=== PATIENT | female | born 1940 | race Caucasian/White ===

== ENCOUNTER 2017-12-13 15:54 | Inpatient (IN) ==
[2017-12-13] MEDS ORDERED: Ketorolac 30 MG/ML VIAL IVP PRN (17:46)
[2017-12-13] MEDS ORDERED: Ondansetron 4 MG/2 ML VIAL IVP PRN (17:46)
[2017-12-13] MEDS ORDERED: Naloxone 0.4 MG/ML INJ IVP PRN (17:46)
[2017-12-13] MEDS ORDERED: OXYCODONE Oral CONC 10 MG/0.5 ML ORAL.SYG SL PRN (17:46)
--- NOTE | 2017-12-13 17:56 | Internal Med History&Physical ---
Date of Encounter: 12/13/17 Time of Encounter: 17:54 Internal Medicine - H&P: HPI Chief complaint: Left knee pain Admitted From: Emergency Dept History of present illness: Ms. Espinal is a 77 year old female with a past medical history of hypertension and CAD status post CABG who went to [facility] emergency room complaining of severe left knee pain after sustaining a fall. The limb was performed. The patient says that she did not feel dizzy before it happened and she just tripped. He x-ray showed an acute comminuted displaced and angulated distal fracture of the left femur. Dr. Urias was called and accepted the transfer. Patient was given fentanyl, blood pressure was recorded as 181/91 with lower values after that. The patient says that the pain is 9 out of 10 in intensity. Denies any other complaints No allergies, takes only aspirin Past Med Surg Social Fam HX - Past Medical History Medical history: coronary artery disease, hypertension Psychiatric history: no psych history - Past Surgical History Surgical History: coronary bypass (CABG), other (Tonsillectomy and right rotator cuff repair) - Social History Smoking Status: Never smoker Smokeless Tobacco Status: No Alcohol use: none Drug use: none - Additional Family History Additional family history: Father with CHF and mother with kidney disease All Systems PM: A 10-system review of systems was performed and is negative for pertinent findings except as documented above in the HPI. Review of systems: No chest pressures or breath other systems out of the 10 reviewed were negative. - Constitutional General appearance: Present: A&O X 3 - Head Head exam: Present: atraumatic, normocephalic - Eye Eye exam: Present: PERRL, conjuntiva pink, sclera anicteric Pupils: Present: PERRL - Neck Neck exam general surgery: Present: supple, trachea midline. Absent: lymphadenopathy - Respiratory Respiratory exam: Present: CTAB. Absent: accessory muscle use, rales, rhonchi, wheezes - Cardiovascular Cardiovascular exam: Present: RRR, +S1, +S2. Absent: diastolic murmur, gallop, rubs, systolic murmur - GI/Abdominal GI/Abdominal exam: Present: normal bowel sounds, soft, no peritoneal signs. Absent: distended, tenderness - Extremities Exam Extremities exam: Present: warm, radial pulses palpable and symmetrical. Absent : calf tenderness, cyanotic, pedal edema Additional comments: Left knee is very swollen, deformed, no ecchymosis - Neurological Exam Neurological exam: Present: CN II-XII intact, oriented X3, no focal deficits. Absent: pronater drift, facial droop, speech deficit - Skin Skin exam: Present: dry, intact Internal Med - H&P Results - Labs Labs: Blood pressure now is 151/82 heart rate 72 temperature 97.4 respiratory rate 16 saturating 98% on room air - Assessment and plan (1) Closed fracture of left distal femur Current Visit: Yes Status: Acute Assessment and plan: Fall precautions Orthopedic surgery consult Order CBC, INR, BMP and EKG Pain control Prior records reviewed IV fluids, nothing by mouth after midnight for possible surgical procedure Omeprazole for GI prophylaxis and subcutaneous tenderness heparin for DVT prophylaxis. The patient will be admitted as inpatient, expected stay more than 2 midnights. Full code. Time spent on this admission 40 minutes Qualifiers: Encounter type: initial encounter Fracture morphology: unspecified fracture morphology Qualified Code(s): S72.402A - Unspecified fracture of lower end of left femur, initial encounter for closed fracture (2) Accelerated hypertension Current Visit: Yes Status: Acute Assessment and plan: Likely exacerbated by pain Can use IV hydralazine if needed Consider starting amlodipine if not improving (3) Intractable pain Current Visit: Yes Status: Acute - Time Spent With Patient Total time spent is greater than 50% in coordination of care (as documented) at patient's floor/unit and/or counseling patient:
[2017-12-13] MEDS ORDERED: 0.9 % Sodium Chloride 1,000 ML IVC SCH (18:00)
[2017-12-13 18:27] LABS: Hematocrit 37.2 % (35.3-44.9); Hemoglobin 13.5 g/dL (11.5-15.4); Immature Platelets 2.4 % (1.1-6.1); Mean Corpuscular HGB Conc 36.3 g/dL (31.6-35.5); Mean Corpuscular Hemoglobin 32.5 pg (28.0-33.3); Mean Corpuscular Volume 89.4 fL (83.0-100.0); Red Blood Count 4.16 M/mcL (3.82-4.97); Red Cell Distribution Width 12.5 % (11.5-14.5)
[2017-12-13 18:51] LABS: BUN/Creatinine Ratio 31 (6-26); Blood Urea Nitrogen 21 mg/dL (8-23); Calcium 9.1 mg/dL (8.6-10.3); Carbon Dioxide 26 mEq/L (23-29); Chloride 109 mEq/L (98-107); Glucose 142 mg/dL (70-105); Osmolality,Calculated 297 (280-300); Potassium 3.6 mEq/L (3.5-5.1); Sodium 141 mEq/L (136-145); eGFR For African Americans > 60 (> 60); eGFR For Non-African Americans > 60 (> 60)
[2017-12-13 18:55] LABS: Prothrombin Time 10.8 Seconds (9.4-12.1)
[2017-12-13] MEDS: OXYCODONE Oral CONC 10 MG/0.5 ML ORAL.SYG SL PRN (19:14)
--- NOTE | 2017-12-13 19:32 | Orthopedic Consult Note ---
Date of Encounter: 12/13/17 Time of Encounter: 19:30 History of Present Illness HPI: Ms. Espinal is a 77 year old female Status post fall tripping over a cord injuring her left knee. Patient seen at another facility transferred over with a displaced comminuted left distal femur fracture. Physical exam Patient alert and oriented 3 Left lower extremity draped over a blanket Tenderness distal femur No tense swelling Neurovascular intact distally X-rays reviewed show displaced fracture left distal femur. Recommendation based on patient's age and bone quality and fracture pattern left distal femoral replacement. We reviewed the risks and benefits as well as recovery. All questions were answered. The patient agreed to this treatment plan and appeared to understand the plan is reviewed. Past Med Surg Social Fam HX - Past Medical History Medical history: coronary artery disease, hypertension Psychiatric history: no psych history - Past Surgical History Surgical History: coronary bypass (CABG), other (Tonsillectomy and right rotator cuff repair) - Social History Smoking Status: Never smoker Smokeless Tobacco Status: No Alcohol use: none Drug use: none Medications and Allergies 3 Allergy/AdvReac Type Severity Reaction Status Date / Time No Known Allergies Allergy Verified 12/13/17 18:16 All Systems Reviewed: The remainder of the systems were reviewed and are negative Results - Labs Result Diagrams: 12/13/17 18:05 12/13/17 18:05 Labs: Abnormal lab results MCHC 36.3 g/dL (31.6-35.5) H 12/13/17 18:05 Chloride 109 mEq/L (98-107) H 12/13/17 18:05 BUN/Creatinine Ratio 31 (6-26) H 12/13/17 18:05 Glucose 142 mg/dL (70-105) H 12/13/17 18:05 H & H 12/13/17 Range/Units 18:05 Hgb 13.5 (11.5-15.4) g/dL Hct 37.2 (35.3-44.9) % All other labs normal. Consult Discharge Plan - Plan Referrals: Varun Benjamin MD [Primary Care Provider] -
--- NOTE | 2017-12-13 23:16 | Anesthesia Evaluation PreOp ---
<Basia Palma M - Last Filed: 12/13/17 23:42> Date of Encounter: 12/13/17 Time of Encounter: 23:13 - Past History Planned Operation: L-distal femur replacement Cardiac History: HTN, Cardiac Surgery, Other (CAD) Anesthesia History: Past Anesthesia (CABG, T&A, R-RCR) Alcohol Use: none Drug use: none Medications and Allergies Amlodipine Besylate/Benazepril [Lotrel 10-20 mg Capsule] 1 cap PO DAILY [History] Metoprolol [Lopressor] 12.5 mg PO BID 12/14/17 [History] Simvastatin [Zocor] 40 mg PO HS 12/14/17 [History] hydroCHLOROthiazide [Hydrochlorothiazide] 25 mg PO DAILY 12/14/17 [History] 3 Allergy/AdvReac Type Severity Reaction Status Date / Time No Known Allergies Allergy Verified 12/13/17 18:16 - Meds/Allergy Pre-op Review Medications Reviewed: Yes Allergies Reviewed: Yes Beta Blockers on Current Med List: No Anesthesia Results - Labs 12/13/17 18:05 12/13/17 18:05 Laboratory Results WBC 10.9 K/mcL (4.3-11.1) 12/13/17 18:05 RBC 4.16 M/mcL (3.82-4.97) 12/13/17 18:05 Hgb 13.5 g/dL (11.5-15.4) 12/13/17 18:05 Hct 37.2 % (35.3-44.9) 12/13/17 18:05 MCV 89.4 fL (83.0-100.0) 12/13/17 18:05 MCH 32.5 pg (28.0-33.3) 12/13/17 18:05 MCHC 36.3 g/dL (31.6-35.5) H 12/13/17 18:05 RDW 12.5 % (11.5-14.5) 12/13/17 18:05 Plt Count 156 K/mcL (140-400) 12/13/17 18:05 MPV 10.0 fL (9.4-12.4) 12/13/17 18:05 Immature Plt Fraction 2.4 % (1.1-6.1) 12/13/17 18:05 PT 10.8 Seconds (9.4-12.1) 12/13/17 18:05 INR 1.0 12/13/17 18:05 Sodium 141 mEq/L (136-145) 12/13/17 18:05 Potassium 3.6 mEq/L (3.5-5.1) 12/13/17 18:05 Chloride 109 mEq/L (98-107) H 12/13/17 18:05 Carbon Dioxide 26 mEq/L (23-29) 12/13/17 18:05 BUN 21 mg/dL (8-23) 12/13/17 18:05 Creatinine 0.68 mg/dL (0.60-1.20) 12/13/17 18:05 Est GFR ( Amer) > 60 (> 60) 12/13/17 18:05 Est GFR (Non-Af Amer) > 60 (> 60) 12/13/17 18:05 BUN/Creatinine Ratio 31 (6-26) H 12/13/17 18:05 Glucose 142 mg/dL (70-105) H 12/13/17 18:05 Calculated Osmolality 297 (280-300) 12/13/17 18:05 Calcium 9.1 mg/dL (8.6-10.3) 12/13/17 18:05 - Imaging EKG: pending Anesthesia Exam Vital Signs Temp Pulse Resp BP Pulse Ox 12/13/17 22:58 98.3 F 63 16 132/67 97 12/13/17 19:43 98.2 F 68 16 127/71 94 Intake and Output 12/13/17 12/13/17 12/13/17 07:59 15:59 23:59 Other: Weight 86.8 kg Patient Weight 12/13/17 23:59 Weight 86.8 kg Height: 5'2" Weight: 191# BMI = 35 - HEENT Pupil (Motor): Pupils equal Anesthesia Assess/Plan ASA Score: 3 Modified Brooks Scale for Level of Consciousness: Cooperative, oriented, and tranquil Anesthetic Plan: General, Regional Monitoring Plan: Standard Monitors Recovery Plan: PACU <Damien Reeves - Last Filed: 12/14/17 11:54> Date of Encounter: 12/14/17 Time of Encounter: 11:52 - Past History Cardiac History: Cardiac Surgery (2013 CABG x 3) Pulmonary History: Denies Any Significant HX TILE SETTER History: Denies Any Significant HX Other Medical History: Denies Any Significant HX : No Anesthesia Results - Labs 12/14/17 01:51 12/13/17 18:05 Anesthesia Exam - HEENT Mallampati: II Teeth: Normal - TILE SETTER TILE SETTER Motor: Normal RUE, Normal LUE, Normal RLE, Normal LLE, Normal Face TILE SETTER Sensory: Normal: RUE, LUE, RLE, LLE, Face - Cardiac Murmur: None - Pulmonary Breath Sounds: bilateral Clear Anesthesia Assess/Plan ASA Score: 3
[2017-12-14] MEDS: OXYCODONE Oral CONC 10 MG/0.5 ML ORAL.SYG SL PRN ×2 (00:57→06:53)
[2017-12-14] MEDS: *HR* Heparin 5,000 UNIT/ML VIAL SQ SCH ×2 (01:06→07:33)
[2017-12-14 02:16] LABS: Hematocrit 31.5 % (35.3-44.9); Mean Corpuscular HGB Conc 35.9 g/dL (31.6-35.5); Mean Corpuscular Hemoglobin 31.8 pg (28.0-33.3); Mean Corpuscular Volume 88.7 fL (83.0-100.0); Platelet Count 133 K/mcL (140-400); Red Blood Count 3.55 M/mcL (3.82-4.97); Red Cell Distribution Width 12.4 % (11.5-14.5)
[2017-12-14 02:17] LABS: Hemoglobin 11.3 g/dL (11.5-15.4)
[2017-12-14 02:34] LABS: Chol/HDL Ratio 2.8 (0-4.9)
--- NOTE | 2017-12-14 06:48 | Orthopedics Progress Note ---
Date of Encounter: 12/14/17 Time of Encounter: 06:48 Subjective Interval history: Patient seen this morning resting comfortably no signs of compartment syndrome surgery plan for early afternoon We reviewed the risks and benefits as well as recovery. All questions were answered. The patient agreed to this treatment plan and appeared to understand the plan is reviewed. Objective Vital signs: Vital Signs Temp Pulse Resp BP Pulse Ox 12/14/17 03:46 97.9 F 66 16 129/69 97 12/13/17 22:58 98.3 F 63 16 132/67 97 12/13/17 19:43 98.2 F 68 16 127/71 94 Intake and Output 12/13/17 12/13/17 12/14/17 15:59 23:59 07:59 Output Total 550 / 550 Balance -550 / -550 Output: Catheter 550 / 550 Urethral ([place]) 550 / 550 Other: Weight 86.8 kg 87.6 kg Patient Weight 12/14/17 23:59 Weight 87.6 kg - Labs CBC & BMP: 12/14/17 01:51 12/13/17 18:05 Labs: Abnormal lab results RBC 3.55 M/mcL (3.82-4.97) L 12/14/17 01:51 Hgb 11.3 g/dL (11.5-15.4) L D 12/14/17 01:51 Hct 31.5 % (35.3-44.9) L 12/14/17 01:51 MCHC 35.9 g/dL (31.6-35.5) H 12/14/17 01:51 Plt Count 133 K/mcL (140-400) L 12/14/17 01:51 Chloride 109 mEq/L (98-107) H 12/13/17 18:05 BUN/Creatinine Ratio 31 (6-26) H 12/13/17 18:05 Glucose 142 mg/dL (70-105) H 12/13/17 18:05 Triglycerides 162 mg/dL (< 150) H 12/14/17 01:51 VLDL Cholesterol, Calc 32 mg/dL (< 31) H 12/14/17 01:51 Consult Discharge Plan - Plan Referrals: Varun Benjamin MD [Primary Care Provider] -
[2017-12-14] MEDS ORDERED: *HR* Meperidine 25 MG/ML SYRINGE IVP PRN (11:56)
[2017-12-14] MEDS ORDERED: *HR* OxyCODONE Immed Rel 5 MG TABLET PO PRN ×2 (11:56→15:25)
[2017-12-14] MEDS ORDERED: Ondansetron 4 MG/2 ML VIAL IVP ONE ×2 (11:56→15:25)
[2017-12-14] MEDS ORDERED: MORPHINE SUL Oral CONC 10 MG/0.5 ML ORAL.SYG SL PRN (11:56)
[2017-12-14] MEDS ORDERED: *HR* Promethazine 25 MG/ML VIAL IVP PRN ×2 (11:56→15:25)
[2017-12-14] MEDS ORDERED: *HR* Propofol 200 MG/20 ML VIAL IVP ONE (11:58)
[2017-12-14] MEDS ORDERED: *HR* FentaNYL (PF) 100 MCG/2 ML VIAL ONE (11:58)
[2017-12-14] MEDS ORDERED: Lidocaine -MPF 2% 2 ML VIAL ONE (11:58)
[2017-12-14] MEDS ORDERED: *HR* Succinylcholine 200 MG/10 ML VIAL IVP ONE (11:59)
[2017-12-14] MEDS ORDERED: Ringers Solution, Lactated 1,000 ML IVC SCH ×3 (12:00→15:25)
[2017-12-14] MEDS ORDERED: ceFAZolin 2,000 MG in 0.9 % Sodium Chloride 100 ML IVPB ONE (12:03)
[2017-12-14] MEDS ORDERED: Dexamethasone 4 MG/ML VIAL ONE ×2 (12:09→12:45)
[2017-12-14] MEDS ORDERED: ROPIVACAINE HCL/PF 0.5% 30 ML VIAL ONE (12:09)
[2017-12-14] MEDS ORDERED: Ethanol\\Acetic Acid\\Na Ace\\Ben 1,000 ML IRRIG.SOLN IR ONE (12:13)
--- NOTE | 2017-12-14 12:34 | Anesthesia Procedures ---
Date of Encounter: 12/14/17 Time of Encounter: 12:34 Procedures: Anesthesia - Nerve Block Procedure Date: 12/14/17 Time: 12:32 Pre-op Diagnosis: femur fracture Checklist: Correct Patient Identifier, Correct procedure, History checked Correct side: Left Blood Thinner: No Monitor Applied: EKG, BP, Pulse Oximetry Supplemental Oxygen via Nasal Cannula (L/min): 2 Sedation: Fentanyl (mcg): 100 Indication: Post Op Analgesia Pre-op Neuro Deficits: No Block Type: Femoral Catheter placed: No Sterile Technique: Yes Ultrasound used: Yes Anatomy identified: Yes Visual spread of Local: Yes Nerve Stimulator Range: 0.2 - 0.4 mA Blood on Needle Aspiration: No Smooth Injection of Local: Yes Pain with Injection of Local: No Prep: Chlorhexadine Needle: 21 x 100 mm Stimuplex Local: Ropivacaine (30 cc with 8 mg decadron) Volume (cc): 30 Number of Attempts: 1 Complications: None/effective block Vitals: Vital Signs/O2 Sat, Most Current Temp Pulse Resp BP Pulse Ox 98.1 F 72 18 157/72 99 12/14/17 06:53 12/14/17 12:30 12/14/17 12:30 12/14/17 12:30 12/14/17 12:30 Anes Supervising Prov Stmt: I was present and supervising this procedure with Krish Car CRNA
[2017-12-14] MEDS ORDERED: Ondansetron 4 MG/2 ML VIAL ONE (12:45)
[2017-12-14] MEDS ORDERED: Acetaminophen IV 1,000 MG/100 ML INFUS..BTL ONE (12:50)
[2017-12-14] MEDS ORDERED: Ketorolac 30 MG/ML VIAL ONE (13:44)
--- NOTE | 2017-12-14 13:56 | Orthopedic Operative Note ---
Date of procedure: 12/14/17 Pre-op diagnosis: Displaced comminuted left distal femur fracture Post-op diagnosis: same Procedure: Procedure: Left distal femoral Total knee replacement, Estimated blood loss: 300 cc Hardware: Metal and plastic: Biomet femur: 14.5 mm x 150 mm bowed stem, 7 cm femur, 3 cm segment. Tibia: 71 x 160 monoblock 12 Radha axil yoke and bushings lock pin 34 patella Procedural Notes: Patient with a displaced comminuted fracture extending intra- articular of right distal femur, grade 3 arthritic changes all 3 compartments. Operative procedure: The patient was brought to the operating room and placed on the operating room table. The operative extremity was prepped and draped in sterile surgical fashion. The patient received IV antibiotics prior to skin incision. A standard midline incision was made centered over the patella. The incision was made through the skin and subcutaneous tissue. A medial parapatellar tendon approach was performed. Care was taken to preserve tissue along the medial aspect of the patella. And to protect the patella tendon. The deep MCL was released off the medial tibia. The infra patella fat pad was excised. The knee sat for 1 minute with antibacterial solution. Using careful blunt and sharp dissection the distal femoral fragment was exposed. Care was taken to avoid injury to neurovascular structures. The distal femur was examined severe comminution with displacement. The distal fragments were excised. Exposing the end of the femur. The femur was transected proximal to the end of the fracture. It was reamed to a 15 x 150 mm. Attention was then turned to the tibia, The tibia was subluxed forward. The entry hole was made for the intramedullary tibial guide. Guide was seated to resect 2 mm off the medial side. The tibia was reamed and then keel punch was seated for a 71 x 160 tibial component. Trial reduction had good motion and good extension good with a 3 cm segment and a 12 Radha The patella was everted and cut was made at the level of the insertion of the quadriceps and patella tendon. The patella was sized to a 34 the guide was seated and the lug holes are drilled. Trial reduction revealed excellent patella tracking. All trial components were removed all bony surfaces were irrigated. The tibia was cemented first the femur was press-fit. The components were locked together with the hinge mechanism. The patella was cemented and held in place with patellar holding clamp. After the cement had hardened It was taken through a range of motion and good full extension, flexion and excellent patella tracking. The knee sat for 2 minutes with a antibacterial solution. The knee was then irrigated out with 2 L of pulse irrigation. The PA close the knee. The extensor mechanism was repaired with a running #2 PDS suture. The subcutaneous tissue was then irrigated and closed deep with #1 PDS suture superficially with 0 PDS suture and skin was closed with Dermabond and skin jr The patient was then placed in a sterile dressing and a postoperative brace extubated and transferred to recovery room in stable condition. Anesthesia: GETA Surgeon: Edilson Urias Was there an assistant reading teacher present: No Estimated blood loss (cc): 300 Condition: stable Disposition: PACU
[2017-12-14 14:53] LABS: Hematocrit 33.2 % (35.3-44.9); Hemoglobin 11.7 g/dL (11.5-15.4)
--- NOTE | 2017-12-14 15:03 | Anesthesia Evaluation Post Op ---
Date of Encounter: 12/14/17 Time of Encounter: 15:03 - Vital Signs Vital Signs: Vital Signs/O2 Sat, Most Current Temp Pulse Resp BP Pulse Ox 98.5 F 72 16 130/55 97 12/14/17 14:50 12/14/17 14:50 12/14/17 14:50 12/14/17 14:50 12/14/17 14:50 - Lungs Lungs: Clear Ascult./Percussion - Airway Airway: Non-obstructed - Cardiovascular Regular Rate - Mental Status Mental Status: Alert & Oriented, Answers Appropriately - Pain Pain Scale: 1 - Nausea Vomiting Nausea Vomiting: Not Present - Hydration Hydration: Tolerates oral liquids - Discharge PostOp Status: Transfer Patient to floor
[2017-12-14] MEDS ORDERED: MOM Conc 10 ML UD.LIQ PO PRN (15:25)
[2017-12-14] MEDS ORDERED: 0.9 % Sodium Chloride 1,000 ML IVC SCH (15:25)
[2017-12-14] MEDS ORDERED: Sennosides 8.6 MG TABLET PO PRN (15:25)
[2017-12-14] MEDS ORDERED: Naloxone 0.4 MG/ML INJ IVP PRN (15:25)
[2017-12-14] MEDS ORDERED: Ondansetron 4 MG/2 ML VIAL IVP PRN (15:25)
[2017-12-14] MEDS ORDERED: *HR* OxyCODONE/APAP 5/325 TABLET PO PRN (15:25)
[2017-12-14] MEDS ORDERED: Temazepam 15 MG CAPSULE PO PRN (15:25)
--- NOTE | 2017-12-14 16:43 | Electrocardiograph Report ---
[place] [id number] Test Date: 2017-12-13 Pat Name: Rita Espinal Department: 113 Room: [facility] Gender: F Chin Strap Sewer: : 1940 Requested By: Edilson Urias Order Number: [id number] Reading MD: Cuauhtemoc Solis Measurements Intervals [place] Rate: 71 P: 58 ND: 132 QRS: 11 QRSD: 89 T: 62 QT: 399 QTc: 421 Interpretive Statements SINUS RHYTHM NONSPECIFIC T-WAVE ABNORMALITY Electronically Signed On 12-14-2017 16:42:13 EDT by Cuauhtemoc Solis
--- NOTE | 2017-12-14 17:09 | Internal Med Progress Note ---
Date of Encounter: 12/14/17 Time of Encounter: 11:00 - Assessment and plan (1) Closed fracture of left distal femur Current Visit: Yes Status: Acute Assessment and plan: Orthopedics with plans for Left distal femoral Total knee replacement this afternoon. Qualifiers: Encounter type: initial encounter Fracture morphology: unspecified fracture morphology Qualified Code(s): S72.402A - Unspecified fracture of lower end of left femur, initial encounter for closed fracture (2) Accelerated hypertension Current Visit: Yes Status: Resolved Assessment and plan: Resolved; suspect exacerbated by pain Continue IV hydralazine if needed - Time Spent With Patient Total time spent is greater than 50% in coordination of care (as documented) at patient's floor/unit and/or counseling patient: - Subjective Interval history: Patient with left leg discomfort secondary to femur fracture Orthopedics with plans for Left distal femoral Total knee replacement this afternoon. - Constitutional Vitals: Temp Pulse Resp BP Pulse Ox 97.7 F 69 16 106/54 95 12/14/17 16:32 12/14/17 16:32 12/14/17 16:32 12/14/17 16:32 12/14/17 16:32 General appearance: Present: A&O X 3 - Respiratory Respiratory exam: Present: CTAB. Absent: accessory muscle use, rales, rhonchi, wheezes - Cardiovascular Cardiovascular exam: Present: RRR, +S1, +S2. Absent: diastolic murmur, gallop, rubs, systolic murmur Internal Medicine: Result - Labs CBC & Chem 7: 12/14/17 14:37 12/13/17 18:05 Labs: Short CBC 12/13/17 12/14/17 12/14/17 Range/Units 18:05 01:51 14:37 WBC 10.9 8.4 (4.3-11.1) K/mcL Hgb 13.5 11.3 L D 11.7 (11.5-15.4) g/dL Hct 37.2 31.5 L 33.2 L (35.3-44.9) % Plt Count 156 133 L (140-400) K/mcL BMP 12/13/17 18:05 Sodium 141 Potassium 3.6 Chloride 109 H Carbon Dioxide 26 BUN 21 Creatinine 0.68 Glucose 142 H Calcium 9.1 - ABG Interpretation ABG results: PT/INR, D-dimer PT 10.8 Seconds (9.4-12.1) 12/13/17 18:05 - Impressions Impressions Knee X-Ray 12/14/17 12:05 IMPRESSION: Immediate changes status post left total knee arthroplasty with long stem femoral and tibial components. No immediate complications. D/ / Christine Corona MD / Christine Corona MD Interpreting Provider: Christine Corona MD - VTE Documentation of Mechanical Device: Venous foot pump, device Consult Discharge Plan - Plan Referrals: Varun Benjamin MD [Primary Care Provider] -
[2017-12-14] MEDS: CeFAZolin Pre 2,000 MG/100 ML 2,000 MG/100 ML BAG IVPB SCH (19:51)
[2017-12-15 01:52] LABS: Hematocrit 23.4 % (35.3-44.9)
[2017-12-15 01:53] LABS: Hemoglobin 8.5 g/dL (11.5-15.4)
[2017-12-15] MEDS: CeFAZolin Pre 2,000 MG/100 ML 2,000 MG/100 ML BAG IVPB SCH (03:54)
--- NOTE | 2017-12-15 08:50 | Orthopedics Progress Note ---
Date of Encounter: 12/15/17 Time of Encounter: 08:49 Subjective Interval history: Patient was seen this morning doing well without complaints. Afebrile vital signs stable. Operative extremity: Neurovascularly intact Dressing clean dry and intact Calves nontender Assessment and plan: Continue with postoperative care Hematocrit 23 transfuse 2 units Objective Vital signs: Vital Signs Temp Pulse Resp BP Pulse Ox 12/15/17 07:02 98.2 F 60 16 109/63 96 12/15/17 03:47 98.0 F 69 15 113/53 96 12/14/17 23:20 98.1 F 74 15 112/68 96 12/14/17 19:41 97.7 F 82 16 130/62 95 12/14/17 19:02 97.7 F 76 16 118/70 96 12/14/17 19:00 95 12/14/17 17:36 98.0 F 77 16 124/73 99 12/14/17 16:32 97.7 F 69 16 106/54 95 12/14/17 16:00 97.9 F 63 16 120/64 94 12/14/17 15:30 97.8 F 63 16 120/56 93 12/14/17 14:50 98.5 F 72 16 130/55 97 12/14/17 14:40 76 16 134/70 97 12/14/17 14:30 73 16 140/69 99 12/14/17 14:20 97.8 F 70 16 149/71 98 12/14/17 12:30 72 18 157/72 99 12/14/17 12:20 66 16 156/86 95 12/14/17 12:15 69 16 152/77 99 12/14/17 12:10 74 18 141/72 98 Intake and Output 12/14/17 12/15/17 12/15/17 23:59 07:59 15:59 Intake Total 200 / 200 200 / 200 Output Total 1100 / 1100 Balance 200 / 200 -900 / -900 Intake: IV Fluids 100 / 100 Ancef Premix 2,000 MG/100 ML 2, 100 / 100 000 mg In 100 ml @ 200 mls/hr IVPB Q8H [facility] Rx#:[id number] Oral 100 / 100 200 / 200 Output: Catheter 1100 / 1100 Other: Weight 90.4 kg - Labs CBC & BMP: 12/15/17 01:24 12/13/17 18:05 Labs: Abnormal lab results RBC 3.55 M/mcL (3.82-4.97) L 12/14/17 01:51 Hgb 8.5 g/dL (11.5-15.4) L D 12/15/17 01:24 Hct 23.4 % (35.3-44.9) L 12/15/17 01:24 MCHC 35.9 g/dL (31.6-35.5) H 12/14/17 01:51 Plt Count 133 K/mcL (140-400) L 12/14/17 01:51 Chloride 109 mEq/L (98-107) H 12/13/17 18:05 BUN/Creatinine Ratio 31 (6-26) H 12/13/17 18:05 Glucose 142 mg/dL (70-105) H 12/13/17 18:05 Triglycerides 162 mg/dL (< 150) H 12/14/17 01:51 VLDL Cholesterol, Calc 32 mg/dL (< 31) H 12/14/17 01:51 - VTE Documentation of Mechanical Device: Venous foot pump, device Consult Discharge Plan - Plan Referrals: Varun Benjamin MD [Primary Care Provider] -
[2017-12-15] MEDS ORDERED: 0.9 % Sodium Chloride 250 ML IVC SCH (09:00)
--- NOTE | 2017-12-15 09:27 | Internal Med Progress Note ---
Date of Encounter: 12/15/17 Time of Encounter: 09:13 - Assessment and plan (1) Closed fracture of left distal femur Current Visit: Yes Status: Acute Assessment and plan: Stated post a total knee replacement, postoperative day 1, pain is well controlled continue physical therapy Qualifiers: Encounter type: initial encounter Fracture morphology: unspecified fracture morphology Qualified Code(s): S72.402A - Unspecified fracture of lower end of left femur, initial encounter for closed fracture (2) Accelerated hypertension Current Visit: Yes Status: Acute Assessment and plan: Likely from pain, now BP improved, resume home medication - Time Spent With Patient Total time spent is greater than 50% in coordination of care (as documented) at patient's floor/unit and/or counseling patient: 25 - 35 minutes - Subjective Interval history: Patient is 77 years old female had left distal femoral fracture stated post total knee replacements yesterday. And she is postoperative day 1. Doing well , pain is controlled. tolerated physical therapy. - Constitutional Vitals: Temp Pulse Resp BP Pulse Ox 98.2 F 60 16 109/63 96 12/15/17 07:02 12/15/17 07:02 12/15/17 07:02 12/15/17 07:02 12/15/17 07:02 General appearance: Present: A&O X 3, pleasant, answers questions appropriately Exam: CONSTITUTIONAL: patient appears as an age appropriate female in no acute distress. EYES Clear sclerae, bilateral pupils are equal, reactive to light. EMOI. RESPIRATORY: No accessory muscle use, bilateral clear to auscultation, no wheezing, no crackles/rales. CARDIOVASCULAR: Regular heart rate, normal S1 and S2, no murmurs GASTROINTESTINAL: bowel sounds present, soft, no tenderness. MUSCULOSKELETAL: Joints in normal range of motion, no clubbing, no edema, no cyanosis. Bilateral peripheral pulses 2+. NEUROLOGIC: CN II to XII are grossly intact, no focal neurological deficit. Internal Medicine: Result - Labs CBC & Chem 7: 12/15/17 01:24 12/13/17 18:05 Labs: Short CBC 12/14/17 12/15/17 Range/Units 14:37 01:24 Hgb 11.7 8.5 L D (11.5-15.4) g/dL Hct 33.2 L 23.4 L (35.3-44.9) % - ABG Interpretation ABG results: PT/INR, D-dimer PT 10.8 Seconds (9.4-12.1) 12/13/17 18:05 - Impressions Impressions Knee X-Ray 12/14/17 12:05 IMPRESSION: Immediate changes status post left total knee arthroplasty with long stem femoral and tibial components. No immediate complications. D/ / Christine Corona MD / Christine Corona MD Interpreting Provider: Christine Corona MD - VTE Documentation of Mechanical Device: Venous foot pump, device Consult Discharge Plan - Plan Referrals: Varun Benjamin MD [Primary Care Provider] -
[2017-12-15] MEDS: Aspirin Enteric Coated 81 MG Tablet PO SCH (11:44)
[2017-12-15] MEDS: traMADol 50 MG TABLET PO PRN (11:44)
[2017-12-15] MEDS: Ibuprofen 800 MG TABLET PO PRN (15:34)
[2017-12-15] MEDS: Furosemide 20 MG/2 ML VIAL IVP PRN ×2 (18:10→21:22)
[2017-12-15] MEDS: Acetaminophen 325 MG TABLET PO PRN (21:22)
[2017-12-16] MEDS: Ibuprofen 800 MG TABLET PO PRN ×2 (04:33→15:53)
[2017-12-16 06:11] LABS: BUN/Creatinine Ratio 27 (6-26); Blood Urea Nitrogen 16 mg/dL (8-23); Calcium 8.2 mg/dL (8.6-10.3); Carbon Dioxide 27 mEq/L (23-29); Chloride 108 mEq/L (98-107); Glucose 120 mg/dL (70-105); Osmolality,Calculated 300 (280-300); Potassium 3.4 mEq/L (3.5-5.1); Sodium 144 mEq/L (136-145); eGFR For African Americans > 60 (> 60); eGFR For Non-African Americans > 60 (> 60)
[2017-12-16 06:12] LABS: Basophils % 0.2 %; Hemoglobin 9.7 g/dL (11.5-15.4); Mean Platelet Volume 10.7 fL (9.4-12.4)
[2017-12-16 06:14] LABS: Eosinophils # 0.1 K/mcL (0.0-0.6); Hematocrit 27.8 % (35.3-44.9); Immature Granulocytes % 0.6 % (0-4); Immature Platelets 3.2 % (1.1-6.1); Lymphocytes # 2.2 K/mcL (0.6-4.6); Lymphocytes % 26.3 %; Mean Corpuscular HGB Conc 34.9 g/dL (31.6-35.5); Mean Corpuscular Hemoglobin 30.9 pg (28.0-33.3); Mean Corpuscular Volume 88.5 fL (83.0-100.0); Monocytes # 0.8 K/mcL (0.0-1.3); Neutrophils # 5.2 K/mcL (1.6-8.9); Platelet Count 97 K/mcL (140-400); Red Blood Count 3.14 M/mcL (3.82-4.97); Red Cell Distribution Width 13.1 % (11.5-14.5); Segmented Neutrophils % 61.9 %
[2017-12-16 06:33] LABS: Platelet Estimate Decreased (Normal); Reactive Lymphocytes Present (Not Present); Toxic Granulation Present (Not Present)
--- NOTE | 2017-12-16 06:43 | Orthopedics Progress Note ---
Date of Encounter: 12/16/17 Time of Encounter: 06:42 Subjective Interval history: Patient was seen this morning doing well without complaints. Afebrile vital signs stable. Operative extremity: Neurovascularly intact Dressing clean dry and intact Calves nontender Assessment and plan: Continue with postoperative care Hemoglobin 9.7 stable for discharge Objective Vital signs: Vital Signs Temp Pulse Resp BP Pulse Ox 12/16/17 06:26 98.1 F 68 18 131/70 96 12/16/17 04:23 98.6 F 68 16 151/80 96 12/16/17 00:01 98.0 F 66 16 155/74 96 12/15/17 20:57 98.2 F 67 16 148/83 97 12/15/17 18:47 98.3 F 66 18 147/77 96 12/15/17 18:25 98.4 F 68 18 130/73 94 12/15/17 18:10 98.1 F 70 18 129/75 96 12/15/17 17:05 98.6 F 76 20 127/76 95 12/15/17 14:43 98.4 F 63 18 122/69 95 12/15/17 14:28 98.6 F 70 16 123/68 96 12/15/17 11:40 98.4 F 76 18 131/70 96 12/15/17 07:02 98.2 F 60 16 109/63 96 Intake and Output 12/15/17 12/15/17 12/16/17 15:59 23:59 07:59 Intake Total 240 / 240 707 / 707 400 / 400 Balance 240 / 240 707 / 707 400 / 400 Intake: Oral 240 / 240 150 / 150 400 / 400 Blood Product 0 / 0 557 / 557 Rbcs Leuko Poor As-3 Ph Unit 0 / 0 272 / 272 [id number] Rbcs Leuko Poor As-3 Ph Unit 285 / 285 [id number] Other: Meal Lunch Percent of Meal Consumed 100% # Voids 1 1 1 - Labs CBC & BMP: 12/16/17 05:22 12/16/17 05:22 Labs: Abnormal lab results RBC 3.14 M/mcL (3.82-4.97) L 12/16/17 05:22 Hgb 9.7 g/dL (11.5-15.4) L 12/16/17 05:22 Hct 27.8 % (35.3-44.9) L 12/16/17 05:22 Plt Count 97 K/mcL (140-400) L 12/16/17 05:22 Reactive Lymphocytes Present (Not Present) A 12/16/17 05:22 Toxic Granulation Present (Not Present) A 12/16/17 05:22 Platelet Estimate Decreased (Normal) L 12/16/17 05:22 Potassium 3.4 mEq/L (3.5-5.1) L 12/16/17 05:22 Chloride 108 mEq/L (98-107) H 12/16/17 05:22 Creatinine 0.59 mg/dL (0.60-1.20) L 12/16/17 05:22 BUN/Creatinine Ratio 27 (6-26) H 12/16/17 05:22 Glucose 120 mg/dL (70-105) H 12/16/17 05:22 Calcium 8.2 mg/dL (8.6-10.3) L 12/16/17 05:22 Triglycerides 162 mg/dL (< 150) H 12/14/17 01:51 VLDL Cholesterol, Calc 32 mg/dL (< 31) H 12/14/17 01:51 - VTE Documentation of Mechanical Device: Venous foot pump, device Consult Discharge Plan - Plan Referrals: Varun Benjamin MD [Primary Care Provider] -
[2017-12-16] MEDS: Acetaminophen 325 MG TABLET PO PRN (07:21)
[2017-12-16] MEDS ORDERED: hydroCHLOROthiazide 25 MG TABLET PO SCH (09:00)
[2017-12-16] MEDS ORDERED: amLODIPine 5 MG TABLET PO SCH (09:00)
[2017-12-16] MEDS: Aspirin Enteric Coated 81 MG Tablet PO SCH (09:52)
--- NOTE | 2017-12-16 10:42 | Internal Med Progress Note ---
<Deon Ray - Last Filed: 12/16/17 10:36> Date of Encounter: 12/16/17 Time of Encounter: 09:15 - Assessment and plan (1) Closed fracture of left distal femur Current Visit: Yes Status: Acute Assessment and plan: Postop day 2, left TKR by Dr. Urias. Doing well. Qualifiers: Encounter type: initial encounter Fracture morphology: unspecified fracture morphology Qualified Code(s): S72.402A - Unspecified fracture of lower end of left femur, initial encounter for closed fracture (2) Accelerated hypertension Current Visit: Yes Status: Acute Assessment and plan: Resolved; suspect exacerbated by pain Resumed home medications. - Time Spent With Patient Total time spent is greater than 50% in coordination of care (as documented) at patient's floor/unit and/or counseling patient: - Subjective Interval history: Patient seen and examined sitting in bedside chair, working with therapy. She is postop day 2. Doing well, pain is controlled. Tolerating physical therapy. Awaiting approval for rehab. - Constitutional Vitals: Temp Pulse Resp BP Pulse Ox 98.1 F 68 18 131/70 96 12/16/17 06:26 12/16/17 06:26 12/16/17 06:26 12/16/17 06:26 12/16/17 06:26 General appearance: Present: cooperative, A&O X 3, pleasant, answers questions appropriately - Head Head exam: Present: atraumatic, normal inspection, normocephalic - Eye Eye exam: Present: normal appearance, conjuntiva pink, sclera anicteric - ENT ENT exam: Present: mucous membranes moist - Neck Neck exam general surgery: Present: full ROM, normal inspection - Respiratory Respiratory exam: Absent: respiratory distress - Extremities Exam Extremities exam: Absent: cyanotic, pedal edema Additional comments: Left knee currently in hinged knee brace. - Neurological Exam Neurological exam: Present: alert, oriented X3, no focal deficits. Absent: facial droop, speech deficit - Psychiatric Psychiatric exam: Present: normal affect, normal mood - Skin Skin exam: Present: dry, warm. Absent: rash Internal Medicine: Result - Labs CBC & Chem 7: 12/16/17 05:22 12/16/17 05:22 Labs: Short CBC 12/16/17 Range/Units 05:22 WBC 8.4 (4.3-11.1) K/mcL Hgb 9.7 L (11.5-15.4) g/dL Hct 27.8 L (35.3-44.9) % Plt Count 97 L (140-400) K/mcL Neutrophils # 5.2 (1.6-8.9) K/mcL BMP 12/16/17 05:22 Sodium 144 Potassium 3.4 L Chloride 108 H Carbon Dioxide 27 BUN 16 Creatinine 0.59 L Glucose 120 H Calcium 8.2 L - ABG Interpretation ABG results: PT/INR, D-dimer PT 10.8 Seconds (9.4-12.1) 12/13/17 18:05 - VTE Documentation of Mechanical Device: Venous foot pump, device Consult Discharge Plan - Plan Referrals: Varun Benjamin MD [Primary Care Provider] - <Roxann Shea - Last Filed: 12/16/17 12:35> Date of Encounter: 12/16/17 - Assessment and plan (1) Closed fracture of left distal femur Current Visit: Yes Status: Acute Qualifiers: Encounter type: initial encounter Fracture morphology: unspecified fracture morphology Qualified Code(s): S72.402A - Unspecified fracture of lower end of left femur, initial encounter for closed fracture (2) Accelerated hypertension Current Visit: Yes Status: Acute - Time Spent With Patient Total time spent is greater than 50% in coordination of care (as documented) at patient's floor/unit and/or counseling patient: - Constitutional Vitals: Temp Pulse Resp BP Pulse Ox 98.4 F 64 18 148/77 96 12/16/17 10:50 12/16/17 10:50 12/16/17 10:50 12/16/17 10:50 12/16/17 10:50 Internal Medicine: Result - Labs CBC & Chem 7: 12/16/17 05:22 12/16/17 05:22 Labs: Short CBC 12/16/17 Range/Units 05:22 WBC 8.4 (4.3-11.1) K/mcL Hgb 9.7 L (11.5-15.4) g/dL Hct 27.8 L (35.3-44.9) % Plt Count 97 L (140-400) K/mcL Neutrophils # 5.2 (1.6-8.9) K/mcL BMP 12/16/17 05:22 Sodium 144 Potassium 3.4 L Chloride 108 H Carbon Dioxide 27 BUN 16 Creatinine 0.59 L Glucose 120 H Calcium 8.2 L - ABG Interpretation ABG results: PT/INR, D-dimer PT 10.8 Seconds (9.4-12.1) 12/13/17 18:05 - Attending Attestation I saw and examined this patient independently, and my medical decision making was reviewed with the resident on 12/16/2017. I agree with the documented findings, assessment and treatment plan as described in the progress note.
[2017-12-16] MEDS: traMADol 50 MG TABLET PO PRN ×2 (12:11→18:22)
--- NOTE | 2017-12-16 13:26 | Event Note ---
Date of Encounter: 12/15/17 Time of Encounter: 15:50 PCR- POD#1 Left distal femoral Total knee replacement 12/14/17 Displaced comminuted left distal femur fracture PCR - Patient seen at bedside. Labwork and medications reviewed. 12/15: 8.5/.4 - patient receiving 2 units PRBCs Pain control: Adequate Participating in PT. All questions and concerns addressed. Educated on use of incentive spirometer, ambulation, and hydration. Patient educated on post-operative restrictions and care. Addressed: NO KNEE MOTION - REMAIN IN TROM BRACE IN EXTENSION AT ALL TIMES EXCEPT FOR HYGIENE. D/C plan: ECF for therapy however waiting on [facility] at this time.
--- NOTE | 2017-12-16 13:28 | Event Note ---
Date of Encounter: 12/16/17 Time of Encounter: 17:34 PCR- POD#2 Left distal femoral Total knee replacement 12/14/17 Displaced comminuted left distal femur fracture PCR - Patient seen at bedside. Daughter at bedside. Labwork and medications reviewed. 12/15: 8.5/23.4 - patient receiving 2 units PRBCs 12/16: 9.7/27.8 Pain control: Adequate Participating in PT. All questions and concerns addressed. Educated on use of incentive spirometer, ambulation, and hydration. Patient educated on post-operative restrictions and care. Addressed: NO KNEE MOTION - REMAIN IN TROM BRACE IN EXTENSION AT ALL TIMES EXCEPT FOR HYGIENE. WBAT. D/C plan: ECF for therapy however waiting on [facility] at this time. - Approval and auth received - patient discharging today
--- NOTE | 2017-12-16 13:30 | Physician Discharge Referral ---
ExtendedCare Referral Info Transfer To: [facility] - Diagnosis (1) Status post left knee replacement Priority: Primary Status: Acute (2) Closed fracture of left distal femur Priority: Primary Status: Acute Expected Duration of Placement: less than 30 days Prognosis: Good Aware of Diagnosis: Patient Aware of Prognosis: Patient - Transfer Medications Home Medications: Amlodipine Besylate/Benazepril [Lotrel 10-20 mg Capsule] 1 cap PO DAILY [History] Metoprolol [Lopressor] 25 mg PO DAILY 12/14/17 [History] Simvastatin [Zocor] 40 mg PO HS 12/14/17 [History] Zolpidem [Ambien] 10 mg PO PRN PRN 12/14/17 [History] hydroCHLOROthiazide [Hydrochlorothiazide] 25 mg PO DAILY 12/14/17 [History] Allergies/Adverse Reactions: 3 Allergy/AdvReac Type Severity Reaction Status Date / Time No Known Allergies Allergy Verified 12/13/17 18:16 - Respiratory Orders Smoking Cessation: Smoking cessation has been advised. For more information, call the [facility] Tobacco Quit Line at 8-643-RCLJ-NOW. - Ancillary Orders May use pressure relief devices daily prn, May go on CONNIE w/family/respon republican w /meds at nurse discretion PRN, May consult with Dentist, Dance Hall Hostess, Clam Bed Worker PRN - Mobility Orders Chair, Ambulate - Rehabiliation Orders Rehab Potential: Good Rehab Orders: Evaluation for Physical Therapy, Evaluation for Occupational Therapy Other: Total Knee replacement Precautions x 6 weeks Apply cold therapy wrap 3-6x/day for 20 minutes at a time. Encourage ambulation throughout the day and incentive spirometer 10x/hour. Elevate affected extremity above heart as tolerated. Brace: NO KNEE MOTION TO OPERATIVE EXTREMITY. TROM BRACE TO BE IN PLACE AT ALL TIMES IN LOCKED EXTENSION. REMOVE FOR HYGIENE ONLY. - Treatments Skin tear care topically daily PRN per policy List/Other: Opsite placed. Keep dressing intact until first follow up appointment. If greater than 50% saturated, notify office, remove dressing and place appropriate dressing back in place. Leave Zipline and jr intact. Opsite dressing is water resistant, not water-proof. OK to shower, but do not get dressing wet. - Diet Orders Regular CERTIFICATION: I certify that the transfer of the above named patient to an Extended Care Facility is necessary for the continuing treatment of the diagnosis listed. The above information is true and accurate reflection of patient's current condition. Confidential - Redisclosure prohibited without a patient's written consent.
--- NOTE | 2017-12-16 14:26 | Discharge Summary ---
Orders not resulted at time of discharge: Pending orders 12/14/17 12:31 US anesthesia pain block [US] Routine Date of Encounter: 12/16/17 Time of Encounter: 13:00 - Discharge Diagnosis (1) Closed fracture of left distal femur Priority: Primary Status: Acute Qualifiers: Encounter type: initial encounter Fracture morphology: unspecified fracture morphology Qualified Code(s): S72.402A - Unspecified fracture of lower end of left femur, initial encounter for closed fracture (2) Accelerated hypertension Priority: Secondary Status: Acute Hospital course: Ms. Espinal is a 77 year old female with a past medical history of hypertension and CAD status post CABG who presented to [facility] emergency room for severe left knee pain after a fall. Noted that she did not feel dizzy, she just tripped. X-ray showed an acute comminuted displaced and angulated distal fracture of the left femur. Dr. Urias was called and accepted the transfer. Left distal femoral Total knee replacement done on 12/14/[address] Urias. She did receive 2 units of pRBC on 12/15/17 for Hgb of 8.5, that was improved today at 9.7. Patient found to have accelerated HTN during being of stay likely secondary to pain, resolved after surgery and patient was returned to her home regimen of hypertensive medications (HCTZ, lopressor, and amlodipine). Patient' s pain has been well controlled post-op and she is participating well with therapy. Plan for transfer to rehab in [place] later today, continuing on full dose aspirin. Pain control regimen discussed with Ortho; continue ibuprofen, tylenol, and ultram prn. Discharge discussed with: patient, family, nurse - Time Spent with Patient Total time spent providing and/or coordinating discharge services: Greater than 30 minutes (40mins) - Discharge Medications Prescriptions: Tramadol HCl [Ultram] 50 mg PO QID PRN 7 Days #28 tab PRN Reason: Moderate Pain Home Medications: Amlodipine Besylate/Benazepril [Lotrel 10-20 mg Capsule] 1 cap PO DAILY [History] Metoprolol [Lopressor] 25 mg PO DAILY 12/14/17 [History] Simvastatin [Zocor] 40 mg PO HS 12/14/17 [History] Zolpidem [Ambien] 10 mg PO PRN PRN 12/14/17 [History] hydroCHLOROthiazide [Hydrochlorothiazide] 25 mg PO DAILY 12/14/17 [History] Acetaminophen [Tylenol] 650 mg PO Q8HR PRN tablet 12/16/17 [Rx] Aspirin Enteric Coated [Aspirin EC] 162 mg PO DAILY tablet. 12/16/17 [Rx] Ibuprofen [Motrin] 800 mg PO Q8HR PRN tablet 12/16/17 [Rx] MOM Conc [MILK OF MAGNESIA conc] 5 ml PO HS PRN ud.liq 12/16/17 [Rx] Tramadol HCl [Ultram] 50 mg PO QID PRN 7 Days #28 tab 12/16/17 [Rx] Allergies/Adverse Reactions: 3 Allergy/AdvReac Type Severity Reaction Status Date / Time No Known Allergies Allergy Verified 12/13/17 18:16 Date of admission: 12/13/17 17:46 Primary care physician: Varun Benjamin MD Consults: 12/13/17 17:48 Consult to Orthopedic Surgery [CONS] Routine Consulting Provider: Edilson Urias Reason for Consult: fracture, called by [place] Call Completed: No 12/14/17 15:25 Consult to Occupational Therapy [CONS] Routine Comment: Evaluate, develop and implement POC Reason for Consult: post knee surgery Does patient have active BEDREST order?: No Is patient medically & hemodynamically stable?: Yes Consult to Orthopedic Navigator [CONS] [CONS] Routine Consult to Physical Therapy [CONS] Routine Comment: Evaluate, develop and impliment POC Reason for Consult: post knee surgery Does patient have active BEDREST order?: No Is patient medically & hemodynamically stable?: Yes Consult to Welding Machine Operator Thermit [CONS] Routine Reason for SW Consult: post op joint replacement RT Post Op Consult [CONS] Routine Discharging clinician: Roxann Shea Anticipated date of discharge: 12/16/17 - Constitutional Vitals: Temp Pulse Resp BP Pulse Ox 98.4 F 64 18 148/77 96 12/16/17 10:50 12/16/17 10:50 12/16/17 10:50 12/16/17 10:50 12/16/17 10:50 General appearance: Present: cooperative, A&O X 3, pleasant, answers questions appropriately - Head Head exam: Present: atraumatic, normal inspection, normocephalic - Eye Eye exam: Present: EOMI, normal appearance, sclera anicteric - ENT ENT exam: Present: mucous membranes moist - Neck Neck exam general surgery: Present: full ROM, normal inspection - Respiratory Respiratory exam: Present: CTAB. Absent: respiratory distress, wheezes - Cardiovascular Cardiovascular exam: Present: RRR, +S1, +S2 - GI/Abdominal GI/Abdominal exam: Present: normal bowel sounds, soft. Absent: tenderness - Extremities Exam Extremities exam: Absent: cyanotic, pedal edema Additional comments: left leg currently in hinged knee brace, locked in full extension post-op. - Neurological Exam Neurological exam: Present: alert, oriented X3, no focal deficits. Absent: facial droop, speech deficit - Psychiatric Psychiatric exam: Present: normal affect, normal mood - Skin Skin exam: Present: dry, intact, normal color, warm. Absent: cyanosis, rash - Patient Status Disposition: Transfer Inpatient Rehab Fac Condition: Good Functional capacity at discharge: uses cane/walker Overall status at discharge: patient is progressing back to baseline - Discharge Instructions Follow Up With: Varun Benjamin MD [Primary Care Provider] - Additional Instructions: Please follow up with Dr. Urias's office (Ortho) as outpatient, they should call to arrange follow up or have this scheduled before you leave today. Further instructions provided by Orthopedics for incision care and rehabiliation within ECF/rehab referral. - Diet and Activity Activity: as per physical therapy Diet: low salt diet - VTE Documentation of Mechanical Device: Venous foot pump, device
[2017-12-16 15:18] VITALS: BP 130/69
== END 2017-12-16 19:10 | DRG 470 ==
LOC: 3BNU → SUATTDRO 17:46 → 3NENU 12-14 00:44
PROVIDERS: ADMIT Internal Medicine Hematology & Oncology; ATTEND Hospitalist